=== PATIENT | female | born 1990 | race Caucasian/White ===

== ENCOUNTER → 2017-01-26 | Outpatient (CLI) | payer MEDICAID ==
[~2017-01-26] MED LIST: ALBU8I INH; CLIN1CAP5 PO; NAPR500 PO; PRED20 PO
== END ==
LOC: HPND 13:00
PROVIDERS: ATTEND Obstetrics & Gynecology
DX: O99.212 Obesity complicating pregnancy, second trimester (principal); O35.8XX0 Maternal care for other (suspected) fetal abnormality and damage, not applicable or unspecified; Z3A.25 25 weeks gestation of pregnancy
CPT/HCPCS: 76811

== ENCOUNTER 2017-04-25 13:20 | Emergency (ER) | payer MEDICAID ==
[~2017-04-25] VITALS: Ht 157.5 cm; Wt 112.0 kg
[2017-04-25 13:27] VITALS: BP 153/79; PULSE 58; RESP 18; TEMP 98.1; O2SAT 98
[2017-04-25] MEDS ORDERED: IBUP-232 PO (13:45)
--- NOTE | 2017-04-25 13:45 | PD ---
HPI Chief Complaint: Oral / Dental Pain or Problem Time Seen by Provider: 13:30 Travel History International Travel<30 days: No Contact w/Intl Traveler<30days: No Traveled to known affect area: No History of Present Illness HPI 27-year-old female presents to the emergency room for evaluation of right lower dental pain for the past 2 days. Patient has had a cavity in the affected tooth but states it started hurting until 2 days ago. She has been taking 600 mg ibuprofen occasionally without significant relief in symptoms. States last time she had an issue like she trying the [id number] dental statement and it made it worse. She denies drainage, fever, chills, nausea, and vomiting. She has been trying to get into an oral surgeon but there is a long wait. She gave 9 days ago and is occasionally breast-feeding. PFSH Past Medical History Asthma: Yes Cancer: No Diminished Hearing: No Psychiatric: No Seizures: No Thyroid Disease: No Ulcer: No Influenza Vaccination: No ?: Not Past Surgical History Surgical History: No Previous Surgery Other Surgery: Yes (DENTAL SURGERY) Social History Alcohol Use: No Tobacco Use: No Substance Use: No Allergies-Medications (Allergen,Severity, Reaction): Coded Allergies: Amoxicillin (Verified Allergy, Severe, HIVES, 04/25/17) Penicillin (Verified Allergy, Severe, HIVES, 04/25/17) Reported Meds & Prescriptions Reported Meds & Active Scripts Active Clindamycin (Clindamycin HCl) 300 Mg Cap 300 Mg PO Q6H 7 Days Ibuprofen 600 Mg Tab 600 Mg PO Q8HR PRN Review of Systems Except as stated in HPI: all other systems reviewed are Neg Physical Exam Narrative GENERAL: Well-nourished, well-developed female in no acute distress. Afebrile. Ambulatory. SKIN: Focused skin assessment warm/dry. HEAD: Normocephalic. EYES: No scleral icterus. No injection or drainage. DENTAL: Mild decay throughout. There is a large cavity in tooth #30. No malocclusion. No surrounding erythema, edema, obvious abscess, or drainage. No submental mandibular, or buccal induration or edema. NECK: Supple, trachea midline. No JVD or lymphadenopathy. CARDIOVASCULAR: Regular rate and rhythm without murmurs, gallops, or rubs. RESPIRATORY: Breath sounds equal bilaterally. No accessory muscle use. Data Data Last Documented VS Vital Signs Date Time Temp Pulse Resp B/P Pulse Ox O2 Delivery O2 Flow Rate FiO2 04/25/17 13:27 98.1 58 18 153/79 98 MDM Medical Decision Making Medical Screen Exam Complete: Yes Emergency Medical Condition: Yes Medical Record Reviewed: Yes Differential Diagnosis Dentalgia, gingivitis, dental caries Narrative Course 27-year-old female presents to the emergency room for evaluation of right lower dental pain for the past 2 days. Physical exam reveals a large cavity in tooth #30. No surrounding erythema, edema, or obvious abscess. No evidence of Vincenzo 's. A dental block was performed and patient reports immediate improvement in pain. Discharged with ibuprofen and clindamycin, both safe during breast- feeding. She was told to follow-up with a dentist or return for worsening symptoms. She understands and agrees to plan. Procedures Procedure Narrative Dental block: A 1.8 cc syringe of bupivacaine with epinephrine was injected between the coronoid notch and pterygomandibular raphe. Patient tolerated procedure well. Reports immediate improvement in pain. Diagnosis Primary Impression: Pain due to dental caries Referrals: Dentist Patient Instructions: General Instructions, Toothache (ED) Additional Instructions: Rest and drink plenty of fluids. Ibuprofen 600 mg with food for pain. Clindamycin as directed, until gone. Follow-up with a dentist. Return to the emergency room for worsening symptoms. Med/Other Pt SpecificInfo: Prescription(s) given Scripts Clindamycin 300 Mg [id number] Mg PO Q6H 7 Days Ref 0 Prov:Kelsi Browne DO 04/25/17 Ibuprofen 600 Mg Nss197 Mg PO Q8HR PRN (PAIN) #21 TAB Ref 0 Prov:Kelsi Browne DO 04/25/17 Disposition: 01 DISCHARGE HOME Condition: Stable Joellen Sales Apr 25, 2017 13:45
[2017-04-25] MEDS ORDERED: CLIN1CAP6 PO (13:52)
== END 2017-04-25 13:56 | disposition home or self-care (01) ==
LOC: PHEFT 13:20
DX: K02.9 Dental caries, unspecified (principal)
CPT/HCPCS: 64400; 99283

== ENCOUNTER 2017-07-01 18:16 | Emergency (ER) | payer SELFPAY ==
[~2017-07-01] VITALS: Ht 157.5 cm; Wt 115.1 kg
[~2017-07-01 18:16] MED LIST changes: -ALBU8I INH; -CLIN1CAP5 PO; +CLIN1CAP6 PO; +IBUP-232 PO; -NAPR500 PO; -PRED20 PO
[2017-07-01 18:22] VITALS: BP 109/61; PULSE 67; RESP 16; TEMP 97.6; O2SAT 100
--- NOTE | 2017-07-01 18:54 | PD ---
HPI . Lower back pain Chief Complaint: Back/ Neck Pain or Injury Time Seen by Provider: 18:38 Travel History International Travel<30 days: No Contact w/Intl Traveler<30days: No Traveled to known affect area: No History of Present Illness HPI 27 year female presents emergency department for evaluation of lower back pain that started a couple weeks ago. She denies any injury or trauma to the area. She denies any paresthesias. It has been intermittent and consistency. It feels achy, stays localized to the area and does not radiate. Patient denies any fevers, chills, malaise. Patient states that she has had problems with back pain since she had a baby. She gave approximately 11 weeks ago. She denies any chest pain, shortness breath, fevers, chills, malaise, hematuria , dysuria, incontinence of urine or stool, saddle region numbness. Patient denies any major medical history. Patient only takes a multivitamin daily, no medication. PFSH Past Medical History Asthma: Yes Cancer: No Diminished Hearing: No Psychiatric: No Seizures: No Thyroid Disease: No Ulcer: No ?: Not LMP: 06/27/17 Past Surgical History Other Surgery: Yes (DENTAL SURGERY) Social History Alcohol Use: No Tobacco Use: No Substance Use: No Allergies-Medications (Allergen,Severity, Reaction): Coded Allergies: amoxicillin (Unverified Allergy, Severe, HIVES, 07/01/17) penicillin G (Unverified Allergy, Severe, HIVES, 07/01/17) Reported Meds & Prescriptions Reported Meds & Active Scripts Active Review of Systems Except as stated in HPI: all other systems reviewed are Neg Physical Exam Narrative GENERAL: Well-nourished, well-developed 27-year-old female patient in no acute distress. Nontoxic appearing. SKIN: Focused skin assessment warm/dry. HEAD: Normocephalic. Atraumatic. EYES: No scleral icterus. No injection or drainage. NECK: Supple, trachea midline. No JVD or lymphadenopathy. CARDIOVASCULAR: Regular rate and rhythm without murmurs, gallops, or rubs. RESPIRATORY: Breath sounds equal bilaterally. No accessory muscle use. GASTROINTESTINAL: Abdomen soft, non-tender, nondistended. MUSCULOSKELETAL: No cyanosis, or edema. BACK: Lumbar region tenderness. No without obvious deformity, ecchymosis or erythema. No CVA tenderness. Data Data Last Documented VS Vital Signs Date Time Temp Pulse Resp B/P (MAP) Pulse Ox O2 Delivery O2 Flow Rate FiO2 07/01/17 18:22 97.6 67 16 109/61 (77) 100 Orders Orders Ketorolac Inj (Toradol Inj) (07/01/17 19:00) Orphenadrine Inj (Norflex Inj) (07/01/17 19:00) MDM Medical Decision Making Medical Screen Exam Complete: Yes Emergency Medical Condition: Yes Differential Diagnosis Differential diagnoses include but not limited to herniated lumbar disc, lower back contusion, muscle strain Narrative Course 27-year-old female presents emergency department for evaluation of lower back pain that has been intermittent in consistency 2 weeks. Patient denies any fevers, chills, dysuria, hematuria, abdominal pain, nausea, vomiting, diarrhea, lightheadedness, paresthesias, incontinence of urine or stool, saddle region numbness.Based on patient's symptoms, clinical presentation, vital sign review and physical exam it is not necessary to admit the patient to the hospital or keep the patient in the emergency department for further evaluation. Patient will be given an IM injection of Toradol and Norflex and discharged home with instructions to rest, use [id number] Motrin as needed for pain or inflammation, alternate ice and heat and follow up with primary care. Diagnosis Primary Impression: Lower back pain Qualified Codes: M54.5 - Low back pain Patient Instructions: Back Pain (GEN), General Instructions Additional Instructions: Please return to emergency department if your symptoms return or worsen. Follow up with your primary care provider. May use [id number] Motrin as needed for pain and inflammation. May alternate ice and heating pads as needed for pain. Disposition: 01 DISCHARGE HOME Condition: Stable Vane Felix Yanique SUSANA Jul 01, 2017 18:54
[2017-07-01] MEDS ORDERED: ORPHENADRINE INJ 60 MG/2 ML AMP IM ONE (19:00)
[2017-07-01] MEDS ORDERED: KETOROLAC TROMETHAMINE 60 MG/2 ML (IM) VIAL IM ONE (19:00)
== END 2017-07-01 19:12 | disposition home or self-care (01) ==
LOC: PHEFT 18:16
DX: M54.5 Low back pain (principal); J45.909 Unspecified asthma, uncomplicated
CPT/HCPCS: 96372; 99284; J1885; J2360

== ENCOUNTER 2017-07-04 10:16 | Emergency (ER) | payer SELFPAY ==
[~2017-07-04] VITALS: Ht 157.5 cm; Wt 114.0 kg
[2017-07-04 10:18] VITALS: BP 125/67; PULSE 78; RESP 16; TEMP 98.3; O2SAT 98
[2017-07-04] MEDS ORDERED: KETOROLAC TROMETHAMINE 60 MG/2 ML (IM) VIAL IM ONE (10:30)
--- NOTE | 2017-07-04 10:43 | PD ---
HPI Chief Complaint: Back/ Neck Pain or Injury Time Seen by Provider: 10:21 Travel History International Travel<30 days: No Contact w/Intl Traveler<30days: No Traveled to known affect area: No History of Present Illness HPI Patient is a 27-year-old female who presents to emergency room with complaints of low back pain. Reports that 11 days ago, she had epidural prior to her vaginal delivery. Reports that she has chronic low back pain, reports that the she had exacerbation of pain a few days after her epidural. Patient reports that she sometimes feels pain is radiating down her left leg and her right leg. Patient reports that symptoms are intermittent in nature. Reports that she sometimes feels tinging sensation to the bottom of her feet. Denies incontinence of urine or stool. Denies fever/chills. Denies saddle anesthesia. Denies gait instability. Reports that pain has not improved since she was seen in the ER a few days ago. PFSH Past Medical History Asthma: Yes Cancer: No Diminished Hearing: No Psychiatric: No Immunizations Current: Yes Seizures: No Thyroid Disease: No Ulcer: No ?: Not LMP: 06/27/17 Past Surgical History Other Surgery: Yes (DENTAL SURGERY) Social History Alcohol Use: No Tobacco Use: No Substance Use: No Allergies-Medications (Allergen,Severity, Reaction): Coded Allergies: amoxicillin (Unverified Allergy, Severe, HIVES, 07/04/17) penicillin G (Unverified Allergy, Severe, HIVES, 07/04/17) Reported Meds & Prescriptions Reported Meds & Active Scripts Active No Active Prescriptions or Reported Medications Review of Systems General / Constitutional: No: Fever Eyes: No: Visual changes HENT: No: Headaches Cardiovascular: No: Chest Pain or Discomfort Respiratory: No: Shortness of Breath Gastrointestinal: No: Abdominal Pain Genitourinary: No: Dysuria Musculoskeletal: Positive: Pain (low back pain) Skin: No Rash Neurologic: No: Weakness Psychiatric: No: Depression Endocrine: No: Polydipsia Hematologic/Lymphatic: No: Easy Bruising Physical Exam Narrative GENERAL: Mild distress SKIN: Focused skin assessment warm/dry. HEAD: Atraumatic. Normocephalic. EYES: Pupils equal and round. No scleral icterus. No injection or drainage. ENT: No nasal bleeding or discharge. Mucous membranes pink and moist. NECK: Trachea midline. No JVD. CARDIOVASCULAR: Regular rate and rhythm. No murmur appreciated. RESPIRATORY: No accessory muscle use. Clear to auscultation. Breath sounds equal bilaterally. GASTROINTESTINAL: Abdomen soft, non-tender, nondistended. Hepatic and splenic margins not palpable. No saddle anesthesia MUSCULOSKELETAL: No obvious deformities. No clubbing. No cyanosis. No edema. Patient ambulating in ER with normal gait Patient with paraspinal lumbar tenderness, no midline tenderness, no redness or erythema to low back NEUROLOGICAL: Awake and alert. No obvious cranial nerve deficits. Motor grossly within normal limits. Normal speech. PSYCHIATRIC: Appropriate mood and affect; insight and judgment normal. Data Data Last Documented VS Vital Signs Date Time Temp Pulse Resp B/P (MAP) Pulse Ox O2 Delivery O2 Flow Rate FiO2 07/04/17 10:18 98.3 78 16 125/67 (86) [address] Lumb Spine W Iv Contrast (07/04/17 ) Ketorolac Inj (Toradol Inj) (07/04/17 10:30) Iohexol 350 Inj (Omnipaque 350 Inj) (07/04/17 11:30) MDM Medical Decision Making Medical Screen Exam Complete: Yes Emergency Medical Condition: Yes Medical Record Reviewed: Yes Interpretation(s) Vital Signs Date Time Temp Pulse Resp B/P (MAP) Pulse Ox O2 Delivery O2 Flow Rate FiO2 07/04/17 10:18 98.3 78 16 125/67 (86) 98 Differential Diagnosis acute on chronic low back pain, obesity, nerve impingement, abscess, discitis, radiculopathy, herniated disc, cauda equina though unlikley Narrative Course 27 year old female who returns to the ER with acute on chronic low back pain. Patient reports that she has had low back pain for a very long time, reports concern as she now has sciatica after a epidural she received 11 days ago for her vaginal delivery. Patient with paraspinal lumbar tenderness, patient with no midline tenderness. Patient with no saddle anesthesia, she is walking in the emergency room with a normal gait. Patient denies any incontinence of urine or bowel. Patient with no signs and symptoms of cauda equina. Patient has been ambulating in ER with normal gait. Given that she recently had an epidural left days ago, CT of the lumbar spine without IV contrast ordered to rule out abscess versus herniated disc. Plan to monitor patient. Vital Signs Date Time Temp Pulse Resp B/P (MAP) Pulse Ox O2 Delivery O2 Flow Rate FiO2 07/04/17 10:18 98.3 78 16 125/67 (86) 98 CT of the lumbar spine without IV contrast shows mild diffuse disc bulge at L5 to S1, otherwise no significant abnormalities identified. Patient with acute on chronic low back pain, patient with no emergency at this time. Patient will follow up with her pcp and will return to ER as needed. Encouraged rest and NSAIDS. She was given a copy of her studies and she will return to ER as needed Diagnosis Primary Impression: Lower back pain Additional Impression: disc bulge L5 - S1 Patient Instructions: General Instructions Departure Forms: Tests/Procedures, Work Release Enter return to work date: Jul 07, 2017 Additional Instructions: Please follow up with your primary care doctor Please follow up with orthopedic surgery Return to ER as needed Return to ER if symptoms worsen or progress Please bring a copy of your CT report with you to your doctor's office for follow up Scripts No Active Prescriptions or Reported Meds Disposition: 01 DISCHARGE HOME Condition: Stable Ngoc Camilo DO Jul 04, 2017 10:43
[2017-07-04] MEDS ORDERED: IOHEXOL 350 MG/ML 10 ML VIAL (for RAD DIAG) IVCONTRAST ONE (11:30)
--- NOTE | 2017-07-04 12:02 | RADRPT ---
EXAM DATE/TIME: 07/04/2017 11:17 [facility] COMPARISON: No previous studies available for comparison. INDICATIONS : Continuous lower back pain. Recent epidural. Evaluate for abscess. IV CONTRAST: 95 cc Omnipaque 350 (iohexol) IV RADIATION DOSE: 40.10 CTDIvol (mGy) ; Patient body habitus MEDICAL HISTORY : None SURGICAL HISTORY : None. ENCOUNTER: Initial ACUITY: 3 days PAIN SCALE: 5/10 LOCATION: spine TECHNIQUE: Volumetric scanning of the lumbar spine was performed. Multiplanar reconstructions in the sagittal, coronal and oblique axial planes were performed. Using automated exposure control and adjustment of the mA and/or kV according to patient size, radiation dose was kept as low as reasonably achievable t o obtain optimal diagnostic quality images. DICOM format image data is available electronically for review and comparison. FINDINGS: . There is normal sagittal spinal alignment. Vertebral body height is maintained. No fracture is visu alized. L2-L3: L3-L4: L4-L5: CONCLUSION: Mild diffuse disc bulge at L5-S1. Otherwise, no significant abnormality is identified. Praneeth Tucker MD on July 04, 2017 at 11:51 Board Certified Radiologist. This report was verified electronically.
== END 2017-07-04 12:20 | disposition home or self-care (01) ==
LOC: PHEFT 10:16
DX: M51.26 Other intervertebral disc displacement, lumbar region (principal)
CPT/HCPCS: 72132; 96372; 99285; J1885; Q9967